=== PATIENT | male | born 1970 | race Caucasian/White ===

== ENCOUNTER → 2016-11-12 | Day surgery (SDC) | payer BC ==
[~2016-11-12] VITALS: Ht 190.5 cm; Wt 113.3 kg
[~2016-11-12] MED LIST: LEVAQUIN500 MG PO; MELATIN3 MG PO; PERCOCET 5-3251 EACH PO
--- NOTE | ~2016-11-12 | OR ---
PATIENT'S NAME: TAISHA GALLARDO [facility] AGE: 46 Y [address] ROOM: [place] [address] LOCATION: [facility] [place] ADMIT DATE: 11/12/2016 OR/Procedure Report DISCHARGE DATE: FAMILY PHYSICIAN: PHYSICIAN, NO ATTENDING PHYSICIAN: Gerardo Raymond SURGEON: Gerardo Raymond MD PORCELAIN ENAMELER: None. DATE OF PROCEDURE: 11/12/2016 PREOPERATIVE DIAGNOSIS: Foreign body, right leg. POSTOPERATIVE DIAGNOSIS: Foreign body, right leg. PROCEDURE: Removal of foreign body, deep right leg. ANESTHESIA: General. ESTIMATED BLOOD LOSS: Less than 20 mL. FLUID REPLACEMENT: 800 mL crystalloid. COMPLICATIONS: None. DRAINS: None. TOURNIQUET TIME: None. INDICATIONS: The patient is a 46-year-old male who was seen in the ER with a foreign body. He had a nail from the nail gun in his right leg. X-rays and the ER doctor's interpretation was that this is into the bone of the tibia. Orthopedics was consulted. The patient was seen. X-rays reviewed again showed the foreign body. It was not clear if this was in the tibia or next to the tibia. Nonetheless, recommendation was made for operative I and D and foreign body removal. Risks and benefits as well as treatment options were explained in detail to the patient. He agreed to proceed. TECHNIQUE: The patient was brought to the operating room and placed supine on the operative table. All bony prominences were well padded. General anesthesia was administered. A well-padded tourniquet was placed on the right leg. The right lower extremity was prepped and draped in the usual sterile fashion. To begin, we brought in fluoroscopy to get good fluoroscopic views of the tibia and the foreign body. It was noted that the nail was just lateral to the tibia through the interosseous membrane but not into the bone. We made an PATIENT'S NAME: TAISHA GALLARDO [facility] AGE: 46 Y [address] ROOM: [place] [address] LOCATION: [facility] [place] ADMIT DATE: 11/12/2016 OR/Procedure Report DISCHARGE DATE: FAMILY PHYSICIAN: PHYSICIAN, NO ATTENDING PHYSICIAN: Gerardo Raymond approximately 3 cm incision proximal and distal to the nail, and including the nail, dissection was carried sharply down through skin and blunt dissection was carried down through subcutaneous tissue. The nail was then removed. We dissected down through the anterior compartment fascia and in the musculature. The tracking of the nail was identified, and again, we did not involve the periosteum. There was no debris or paper or plastic associated with the nail gun in the wound and no nonviable tissue. We thoroughly irrigated with 2.5 L of normal saline using the Pulsavac. We then closed the fascia with 2-0 Vicryl running suture, subcutaneous tissues with 3-0 Monocryl, and skin with 3- 0 nylon. A sterile dressing was applied. The patient was gently transferred on hospital cart and taken to the postanesthesia recovery room apparently in stable condition. Please note that all needle and sponge counts were correct at the end of the case. MD GEE LANDA/miguel /[id number] d: 11/16/16 2208 t: 01/02/17 1732, OPERATIVE SUMMARY
--- NOTE | ~2016-11-12 | OR ---
PATIENT'S NAME: TAISHA GALLARDO [facility] AGE: 46 Y [address] ROOM: [place] [address] LOCATION: [facility] [place] ADMIT DATE: 11/12/2016 OR/Procedure Report DISCHARGE DATE: FAMILY PHYSICIAN: PHYSICIAN, NO ATTENDING PHYSICIAN: Gerardo Raymond SURGEON: Gerardo Raymond MD LABORER AIRPORT MAINTENANCE: None. DATE OF PROCEDURE: 11/12/2016 PREOPERATIVE DIAGNOSIS: Foreign body, right leg. POSTOPERATIVE DIAGNOSIS: Foreign body, right leg. PROCEDURE: Removal of foreign body, deep right leg. ANESTHESIA: General. ESTIMATED BLOOD LOSS: Less than 20 mL. FLUID REPLACEMENT: 800 mL crystalloid. COMPLICATIONS: None. DRAINS: None. TOURNIQUET TIME: None. INDICATIONS: The patient is a 46-year-old male who was seen in the ER with a foreign body. He had a nail from the nail gun in his right leg. X-rays and the ER doctor's interpretation was that this is into the bone of the tibia. Orthopedics was consulted. The patient was seen. X-rays reviewed again showed the foreign body. It was not clear if this was in the tibia or next to the tibia. Nonetheless, recommendation was made for operative I and D and foreign body removal. Risks and benefits as well as treatment options were explained in detail to the patient. He agreed to proceed. TECHNIQUE: The patient was brought to the operating room and placed supine on the operative table. All bony prominences were well padded. General anesthesia was administered. A well-padded tourniquet was placed on the right leg. The right lower extremity was prepped and draped in the usual sterile fashion. To begin, we brought in fluoroscopy to get good fluoroscopic views of the tibia and the foreign body. It was noted that the nail was just lateral to the tibia through the interosseous membrane but not into the bone. We made an PATIENT'S NAME: TAISHA GALLARDO [facility] AGE: 46 Y [address] ROOM: [place] [address] LOCATION: [facility] [place] ADMIT DATE: 11/12/2016 OR/Procedure Report DISCHARGE DATE: FAMILY PHYSICIAN: PHYSICIAN, NO ATTENDING PHYSICIAN: Gerardo Raymond approximately 3 cm incision proximal and distal to the nail, and including the nail, dissection was carried sharply down through skin and blunt dissection was carried down through subcutaneous tissue. The nail was then removed. We dissected down through the anterior compartment fascia and in the musculature. The tracking of the nail was identified, and again, we did not involve the periosteum. There was no debris or paper or plastic associated with the nail gun in the wound and no nonviable tissue. We thoroughly irrigated with 2.5 L of normal saline using the Pulsavac. We then closed the fascia with 2-0 Vicryl running suture, subcutaneous tissues with 3-0 Monocryl, and skin with 3- 0 nylon. A sterile dressing was applied. The patient was gently transferred on hospital cart and taken to the postanesthesia recovery room apparently in stable condition. Please note that all needle and sponge counts were correct at the end of the case. MD GEE LANDA/miguel /[id number] d: t: 11/16/16 2232, OPERATIVE SUMMARY
--- NOTE | ~2016-11-12 | ER ---
PATIENT'S NAME: TAISAH GALLARDO [facility] AGE: 46 Y [address] ROOM: [place] [address] [place] [facility] [place] DATE: 11/12/2016 ER/Outpatient Report DISCHARGE DATE: FAMILY PHYSICIAN: PHYSICIAN, NO ATTENDING PHYSICIAN: Gerardo Raymond CHIEF COMPLAINT: Nail gun injury to the leg. HISTORY OF PRESENT ILLNESS: Approximately 20 minutes prior to arrival, at 3 o'clock, the patient was working on a deck. It is unclear his exact working relationship, though he was not an employee. He was using a nail gun when something unusual happened, though he cannot exactly describe it and he felt a thud in his right rios. He looked down and saw nail sticking out of his rios. He was loaded in a car and brought in. He states he is otherwise healthy with no significant past medical history. Denies any medications and states he is allergic to penicillin with nausea that is very severe. He does not remember his last tetanus shot. He is originally from [place]. He was in the area helping with this project. He does not have any local providers or physicians. PAST MEDICAL HISTORY: Documented on the record and reviewed by me. SOCIAL HISTORY: Documented on the record and reviewed by me. MEDICATIONS: Documented on the record and reviewed by me. ALLERGIES: DOCUMENTED ON THE RECORD AND REVIEWED BY ME. REVIEW OF SYSTEMS: All systems reviewed and negative as except as noted in the HPI. PHYSICAL EXAMINATION: VITAL SIGNS: Blood pressure 142/91, pulse 69, respiratory rate 16, temperature 97.7, and SpO2 is 96% on room air. Pain is 3/10 with no motion, 7/10 with motion. GENERAL: Age-appropriate male, in no obvious distress, in moderate pain, recumbent. NEUROLOGIC: Awake and alert. GCS 15. No focal deficits. No asymmetry. The patient does require wheelchair as he is nonambulatory secondary to pain. No obvious abnormalities otherwise. PATIENT'S NAME: TAISHA GALLARDO [facility] AGE: 46 Y [address] ROOM: [place] [address] [place] [facility] [place] DATE: 11/12/2016 ER/Outpatient Report DISCHARGE DATE: FAMILY PHYSICIAN: PHYSICIAN, NO ATTENDING PHYSICIAN: Gerardo Raymond HEENT: Normocephalic and atraumatic. Eyes are PERRL. Oropharynx is clear. NECK: Supple. Trachea is midline. CHEST: Heart has regular rate and rhythm. No murmurs. Lungs are clear to auscultation bilaterally. No rhonchi, wheezes, or rales. ABDOMEN: Soft, nontender, and nondistended. No rebound or guarding. BACK: Back is normal to inspection and palpation. EXTREMITIES: Warm, well formed, and well perfused. The right tibia is notable for what appears to be a 16-alisha galvanized nail emerging from the tibia. It is fixed and firm in location. The foot is otherwise neurovascularly intact. He is able to wiggle his toes. Flexion and extension of the ankle is excruciating at this site. LABORATORY DATA AND X-RAYS: Plain films of the leg were obtained and revealed a nail entering the anterior aspect of the tibia, exiting posteriorly. No obvious fracture or other fragments. No obvious gross contamination. CBC without appreciable abnormality other than platelets of 149. INR is less than 1. CMS without appreciable abnormality other than slight elevation of LFTs. AST and ALT are 44 and 94 respectively. IMPRESSION: 1. Nail involving the tibia and posterior compartment of the leg, requires surgical debridement. 2. Mild transaminitis, undetermined etiology, likely secondary to mild dehydration. EMERGENCY DEPARTMENT COURSE: The patient was seen and evaluated. Transaminitis can be followed up as an outpatient. The nail is the chief concern today. His tetanus was updated. He was given 2 grams of Ancef IV. He did not require any pain medication unless we were moving his leg. X-rays were obtained and the case was discussed with Dr. Raymond, orthopedic surgeon. As the patient did eat at noon and he is otherwise stable, we will defer operative debridement until later this evening. The patient was taken to [facility] in stable condition. He can have fentanyl if needed until surgery. All questions were answered. The patient was taken to the preop area in good condition. MD JOSEF DENTON/miguel PATIENT'S NAME: TAISHA GALLARDO [facility] AGE: 46 Y [address] ROOM: [place], [place] [address] [place]: [facility] [place] DATE: 11/12/2016 ER/Outpatient Report DISCHARGE DATE: FAMILY PHYSICIAN: STEPHANIA ARRINGTON ATTENDING PHYSICIAN: Gerardo Raymond /[id number] d: 11/12/160 t: 11/26/16 0700, OUTPATIENT REPORT
[2016-11-12 15:38] LABS: BASOPHIL % 0.3 %; EOSINOPHIL # 0.1 K/uL (0.0-0.5); EOSINOPHIL % 0.9 %; HEMATOCRIT 43.1 % (37.0-53.0); HEMOGLOBIN 15.8 g/dL (12.0-17.0); IMMATURE GRANULOCYTE % 0.2 %; LYMPHOCYTE # 1.5 K/uL (0.8-4.0); LYMPHOCYTE % 22.9 %; MCH 32.6 pg (27.0-34.0); MCHC 36.7 gm/dL (32.0-36.5); MONOCYTE # 0.4 K/uL (0.0-1.0); MONOCYTE % 6.3 %; MPV 9.2 fl (9.4-12.4); NEUTROPHIL # (ANC) 4.6 K/uL (1.4-9.0); NEUTROPHIL % 69.4 %; NRBC % 0 /100WBC (0-0.00); PLATELET COUNT 149 K/uL (150-450); RBC 4.84 M/uL (4.00-6.00); RDW-CV 12.4 % (11.9-14.6); WBC 6.6 K/uL (4.0-11.0)
[2016-11-12 15:46] LABS: INR - (THERAPEUTIC) 0.96 (0.92-1.07); PROTIME 10.1 SECONDS (9.8-11.4); PTT 27 SECONDS (25-32)
[2016-11-12 15:56] LABS: ALBUMIN 4.2 gm/dL (3.5-5.0); ALK PHOS 102 IU/L (33-138); ALT 94 IU/L (12-78); ANION GAP 10.7 (10.0-19.0); AST 44 IU/L (10-40); BLOOD UREA NITROGEN 16 mg/dL (6-24); CALCIUM 8.9 mg/dL (8.5-10.5); CHLORIDE 112 mMol/L (96-110); CO2 24 mMol/L (22-32); CREATININE 1.2 mg/dL (0.6-1.3); ESTIMATED GFR (MDRD EQUATION) > 60; POTASSIUM 3.7 mMol/L (3.7-5.1); SODIUM 143 mMol/L (135-145); TOTAL BILIRUBIN 0.9 mg/dL (0.0-1.5); TOTAL PROTEIN 7.6 g/dL (6.0-8.4)
== END | disposition disaster alternative care site (69) ==
LOC: GACC 15:21 → GSDC 16:21
PROVIDERS: Emergency Medicine
PROC: 0JCN0ZZ Extirpation of Matter from Right Lower Leg Subcutaneous Tissue and Fascia, Open Approach (ICD-10-PCS; principal; 2016-11-12)
DX: S81.841A Puncture wound with foreign body, right lower leg, initial encounter (principal); Z88.0 Allergy status to penicillin; Z98.890 Other specified postprocedural states; W29.4XXA Contact with nail gun, initial encounter
CPT/HCPCS: J0690; J1200; J2001; J2250; J2405; J2765; J7120